=== PATIENT | female | born 1990 | race Caucasian/White ===

== ENCOUNTER 2017-05-18 19:38 | Emergency (ER) | payer OTHER ==
[~2017-05-18] VITALS: Ht 170.2 cm; Wt 64.1 kg
[2017-05-18 20:20] VITALS: BP 115/83
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
[2017-05-18 21:29] LABS: BASOPHILS # (AUTO) 0.2 K/uL (0.00-0.22); BASOPHILS % (AUTO) 2.2 % (0.0-2.0); EOSINOPHILS # (AUTO) 0.2 K/uL (0-0.4); EOSINOPHILS % (AUTO) 1.5 % (0.0-4.0); HEMATOCRIT 42.4 % (36-48); HEMOGLOBIN 14.2 g/dL (12.0-16.0); LYMPHOCYTES % (AUTO) 18.3 % (20.5-51.1); MEAN CORPUSCULAR HEMOGLOBIN 30 pg (27-31); MEAN CORPUSCULAR HGB CONC 33 g/dL (33-37); MEAN CORPUSCULAR VOLUME 90 fL (80-94); MONOCYTES # (AUTO) 0.6 K/uL (0.8-1.0); MONOCYTES % (AUTO) 5.8 % (1.7-9.3); NEUTROPHILS # (AUTO) 7.8 K/uL (1.8-7.7); NEUTROPHILS % (AUTO) 72.2 % (42.2-75.2); PLATELET COUNT (AUTO) 326 K/uL (140-450); RED BLOOD CELL COUNT(AUTO) 4.72 MIL/uL (4.20-5.40); RED CELL DISTRIBUTION WIDTH 13.2 % (11.6-13.7); WHITE BLOOD COUNT (AUTO) 10.8 K/uL (4.8-10.8)
[2017-05-18 21:36] LABS: APPEARANCE,URINE CLEAR (CLEAR); BILIRUBIN,URINE NEGATIVE (NEGATIVE); BLOOD, URINE 2+ (NEGATIVE); COLOR,URINE YELLOW (YELLOW); LEUKOCYTE ESTERASE ,URINE TRACE (NEGATIVE); NITRITE, URINE NEGATIVE (NEGATIVE); PROTEIN,URINE NEGATIVE (NEGATIVE); UGLUCOSE NEGATIVE (NEGATIVE); UROBILINOGEN,URINE 0.2 EU/dL (0.2 - 1)
[2017-05-18 21:45] LABS: ANION GAP 11.3 (8-16); CALCIUM 8.8 mg/dL (8.5-10.1); CARBON DIOXIDE 29.9 mmol/L (21-32); CREATININE 0.9 mg/dL (0.6-1.3); POTASSIUM 4.2 mmol/L (3.5-5.1)
[2017-05-18 21:53] LABS: BACTERIA,URINE 1+ /HPF (None Seen); MUCUS,URINE 1+ /LPF (None Seen); WBC,URINE 0-3 /HPF (0-5)
--- NOTE | 2017-05-18 21:58 | NUR ---
AMBULATED TO ER BED 5
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
--- NOTE | 2017-05-18 22:36 | NUR ---
MORRIS ALVARADO AT BEDSIDE TO INTERVIEW PT
--- NOTE | 2017-05-18 23:34 | NUR ---
Patient discharged with v/s stable. Written and verbal after care instructions given and explained. Patient verbalized understanding. Ambulatory with steady gait. All questions addressed prior to discharge. Advised to follow up with PMD.
[2017-05-18 23:35] VITALS: BP 117/84
== END 2017-05-18 23:35 | disposition home or self-care (01) ==
LOC: MED 19:38
DX: S10.81XA Abrasion of other specified part of neck, initial encounter (principal); R10.84 Generalized abdominal pain; R03.0 Elevated blood-pressure reading, without diagnosis of hypertension; Y04.0XXA Assault by unarmed brawl or fight, initial encounter; Y93.89 Activity, other specified; Y92.89 Other specified places as the place of occurrence of the external cause; Y99.8 Other external cause status
CPT/HCPCS: 36415; 76801; 80048; 81001; 81025; 84702; 85025; 86900; 86901; 99285

== ENCOUNTER 2017-07-08 09:44 | Emergency (ER) | payer OTHER ==
[~2017-07-08] VITALS: Ht 172.7 cm; Wt 61.9 kg
[2017-07-08 10:12] VITALS: BP 92/53
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
--- NOTE | 2017-07-08 10:38 | NUR ---
Patient being evaluated by DR ZULUAGA at bedside.
[2017-07-08] MEDS ORDERED: NACL 0.9% 1,000 ML IV ONE (10:45)
--- NOTE | 2017-07-08 11:27 | NUR ---
Patient appears to be resting comfortably in bed. Vital Signs within normal limits. Respirations even and unlabored.WILL CONTINUE TO MONITOR.
[2017-07-08 11:31] LABS: BILIRUBIN,URINE 1+ (NEGATIVE); COLOR,URINE ORANGE (YELLOW); LEUKOCYTE ESTERASE ,URINE NEGATIVE (NEGATIVE); NITRITE, URINE NEGATIVE (NEGATIVE); UGLUCOSE NEGATIVE (NEGATIVE)
[2017-07-08 11:43] LABS: ANION GAP 10.4 (8-16); CARBON DIOXIDE 26.9 mmol/L (21-32); CREATININE 0.7 mg/dL (0.6-1.3); POTASSIUM 4.3 mmol/L (3.5-5.1)
--- NOTE | 2017-07-08 11:45 | NUR ---
SISTER AT BEDSIDE.Patient appears to be resting comfortably in bed. Vital Signs within normal limits. Respirations even and unlabored.WILL CONTINUE & MONITOR.
[2017-07-08 11:47] LABS: APPEARANCE,URINE HAZY (CLEAR)
[2017-07-08 11:48] LABS: BLOOD, URINE 1+ (NEGATIVE); RBC,URINE 0-5 (RARE) /HPF (0-5); WBC,URINE 0-5 (RARE) /HPF (0-5)
[2017-07-08 11:52] LABS: BASOPHILS # (AUTO) 0.3 K/uL (0.00-0.22); BASOPHILS % (AUTO) 3.9 % (0.0-2.0); EOSINOPHILS # (AUTO) 0.2 K/uL (0-0.4); EOSINOPHILS % (AUTO) 1.7 % (0.0-4.0); HEMATOCRIT 40.2 % (36-48); HEMOGLOBIN 13.4 g/dL (12.0-16.0); LYMPHOCYTES # (AUTO) 1.1 K/uL (2.5-16.5); LYMPHOCYTES % (AUTO) 12.8 % (20.5-51.1); MEAN CORPUSCULAR HEMOGLOBIN 30 pg (27-31); MEAN CORPUSCULAR HGB CONC 33 g/dL (33-37); MEAN CORPUSCULAR VOLUME 90 fL (80-94); MONOCYTES # (AUTO) 0.3 K/uL (0.8-1.0); MONOCYTES % (AUTO) 3.2 % (1.7-9.3); NEUTROPHILS # (AUTO) 6.9 K/uL (1.8-7.7); NEUTROPHILS % (AUTO) 78.4 % (42.2-75.2); PLATELET COUNT (AUTO) 246 K/uL (140-450); RED BLOOD CELL COUNT(AUTO) 4.48 MIL/uL (4.20-5.40); RED CELL DISTRIBUTION WIDTH 12.5 % (11.6-13.7); WHITE BLOOD COUNT (AUTO) 8.8 K/uL (4.8-10.8)
[2017-07-08 11:58] LABS: ALBUMIN 3.4 g/dL (3.4-5.0); THYROID STIMULATING HORMONE 1.01 uIU/mL (0.34-3.74); TOTAL BILIRUBIN 0.7 mg/dL (0.0-1.0)
[2017-07-08 12:49] VITALS: BP 112/71
== END 2017-07-08 12:49 | disposition home or self-care (01) ==
LOC: MED 09:44
DX: R55 Syncope and collapse (principal); R42 Dizziness and giddiness
CPT/HCPCS: 36415; 80053; 81001; 81025; 84443; 84484; 85025; 93005; 96360; 99285; J7030

== ENCOUNTER 2017-09-20 18:09 | Emergency (ER) | payer OTHER ==
[~2017-09-20] VITALS: Ht 170.2 cm; Wt 61.2 kg
[2017-09-20 19:23] VITALS: BP 104/63
--- NOTE | 2017-09-20 19:31 | NUR ---
TO ER BED 4
--- NOTE | 2017-09-20 19:35 | NUR ---
27 Y/O F W/C/O PELVIC PAIN AND ABD VAGINAL BLEEDING X 1 MTN. PT DENIES ANY MED HX, AND STATES HAS AN IUD ON PLACE. ER LUPE MADE AWARE.
--- NOTE | 2017-09-20 20:00 | NUR ---
TERESITA HARMON AT BEDSIDE EVALUATING PT.
--- NOTE | 2017-09-20 20:40 | NUR ---
Pelvic exam performed by DR GONZALEZ with TAMARA SALMON at bedside for entire examination. Patient tolerated procedure WELL. Patient assisted to position of comfort after examination.
[2017-09-20] MEDS ORDERED: metroNIDAZOLE 250 MG TAB PO ONE (20:45)
[2017-09-20] MEDS ORDERED: cefTRIAXone 1,000 MG VIAL ONE (20:57)
[2017-09-20 22:03] VITALS: BP 107/68
--- NOTE | 2017-09-20 22:03 | NUR ---
Patient discharged by dr ferreira with v/s stable. Written and verbal after care instructions given and explained by er md. Patient alert, oriented and verbalized understanding of instructions. Ambulatory with steady gait. All questions addressed prior to discharge. ID band removed. Patient advised to follow up with PMD or return to er if condition worsens. Rx of doxycycline given. Patient educated on indication of medication including possible reaction and side effects. Opportunity to ask questions provided and answered.
[2017-09-23 06:19] LABS: CHLAMYDIA TRACHOMATIS AMP DNA Positive (Negative)
== END 2017-09-20 22:03 | disposition home or self-care (01) ==
LOC: MED 18:09
DX: N76.0 Acute vaginitis (principal); Z71.6 Tobacco abuse counseling; Z90.49 Acquired absence of other specified parts of digestive tract
CPT/HCPCS: 36415; 81002; 81025; 87070; 87491; 96365; 99284; J0696; J7060

== ENCOUNTER 2018-01-31 12:31 | Emergency (ER) | payer OTHER ==
[~2018-01-31] VITALS: Ht 170.2 cm; Wt 63.0 kg
[2018-01-31 12:37] VITALS: BP 122/70
--- NOTE | 2018-01-31 12:44 | NUR ---
PT AMBULATED TO BED 1
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
--- NOTE | 2018-01-31 12:45 | NUR ---
Note undone in EDM - 01/31/18 at 1423 by [email or web address] PATIENT PRESENTS TO ED WITH NUSEA AND ABDOMINIAL PAIN . PT. DENIES /DV AND; SKIN IS PINK/WARM/DRY; AAOX4 WITH EVEN AND STEADY GAIT; LUNGS CLEAR BL; HR EVEN AND REGULAR; PT C/O MAY HAVE HAD INTERMITEN FEVER DENIES, CP, SOB, OR COUGH AT THIS TIME; PATIENT STATES PAIN OF 7/10 AT THIS TIME; VSS; PATIENT POSITIONED FOR COMFORT; HOB ELEVATED; BEDRAILS UP X2; BED DOWN. ER MADE AWARE OF PT STATUS.
--- NOTE | 2018-01-31 12:45 | NUR ---
PATIENT PRESENTS TO ED WITH NUSEA AND ABDOMINIAL PAIN . PT. DENIES /DV AND; SKIN IS PINK/WARM/DRY; AAOX4 WITH EVEN AND STEADY GAIT; LUNGS CLEAR BL; HR EVEN AND REGULAR; PT C/O MAY HAVE HAD INTERMITEN FEVER DENIES, CP, SOB, OR COUGH AT THIS TIME; PATIENT STATES PAIN OF 7/10 AT THIS TIME; VSS; PATIENT POSITIONED FOR COMFORT; HOB ELEVATED; BEDRAILS UP X2; BED DOWN. ER MD MADE AWARE OF PT STATUS.
[2018-01-31] MEDS ORDERED: KETOROLAC 60 MG/2 ML VIAL IM ONE (12:55)
--- NOTE | 2018-01-31 15:20 | NUR ---
Patient discharged with v/s stable. Written and verbal after care instructions given and explained. Patient alert, oriented and verbalized understanding of instructions. Ambulatory with steady gait. All questions addressed prior to discharge. ID band removed. Patient advised to follow up with PMD. Rx of MOtrin, prilosec, and [place] given. Patient educated on indication of medication including possible reaction and side effects. Opportunity to ask questions provided and answered.
[2018-01-31 15:21] VITALS: BP 119/72
== END 2018-01-31 15:21 | disposition home or self-care (01) ==
LOC: MED 12:31
DX: R10.30 Lower abdominal pain, unspecified (principal); R50.9 Fever, unspecified; R11.0 Nausea; F17.200 Nicotine dependence, unspecified, uncomplicated; Z90.49 Acquired absence of other specified parts of digestive tract
CPT/HCPCS: 96372; 99283; J1885; 81002; 81025

== ENCOUNTER 2019-12-29 17:59 | Emergency (ER) | payer MEDICAID, OTHER ==
[~2019-12-29] VITALS: Ht 170.2 cm; Wt 74.8 kg
[2019-12-29 18:12] VITALS: BP 122/83
--- NOTE | 2019-12-29 19:13 | NUR ---
AMB TO BED 12
--- NOTE | 2019-12-29 19:40 | NUR ---
DR. GUTIÉRREZ AT BEDSIDE.
[2019-12-29] MEDS ORDERED: NACL 0.9% 1,000 ML IV ONE (19:55)
[2019-12-29] MEDS ORDERED: fentaNYL 0.05 MG/ML VIAL IVP ONE (19:55)
[2019-12-29] MEDS ORDERED: ONDANSETRON 4 MG/2 ML VIAL IVP ONE (19:55)
--- NOTE | 2019-12-29 19:55 | NUR ---
29 YO F BIB SELF C/O 08/16 CONSTANT "PULLING"/SHARP EPIGASTRIC PAIN X 4 DAYS. PT STATES IT RADIATES INTO RIGHT SIDE MIDDLE BACK. DENIES NVD. LAST BM THIS MORNING, PT STATES IT WAS NORMAL. DENIES CONSTIPATION. ABD IS FLAT, SOFT, PLIABLE, NON TENDER. MEDICATED AT HOME WITH 800 MG MOTRIN AND TYLENOL WITH MILD, TEMPORARY RELIEF. PMH-- CHOLECYSTECTOMY, 5+ YEARS AGO
--- NOTE | 2019-12-29 20:18 | NUR ---
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
[2019-12-29 20:21] LABS: BASOPHILS # (AUTO) 0.2 K/uL (0.00-0.22); BASOPHILS % (AUTO) 1.5 % (0.0-2.0); EOSINOPHILS # (AUTO) 0.3 K/uL (0-0.4); EOSINOPHILS % (AUTO) 2.2 % (0.0-4.0); HEMATOCRIT 42.5 % (36-48); HEMOGLOBIN 14.4 g/dL (12.0-16.0); LYMPHOCYTES # (AUTO) 3.1 K/uL (2.5-16.5); MEAN CORPUSCULAR HEMOGLOBIN 30 pg (27-31); MEAN CORPUSCULAR HGB CONC 34 g/dL (33-37); MEAN CORPUSCULAR VOLUME 88.5 fL (80-94); MONOCYTES # (AUTO) 0.7 K/uL (0.8-1.0); MONOCYTES % (AUTO) 6.5 % (1.7-9.3); NEUTROPHILS # (AUTO) 7.2 K/uL (1.8-7.7); NEUTROPHILS % (AUTO) 62.8 % (42.2-75.2); PLATELET COUNT (AUTO) 369 K/uL (140-450); RED CELL DISTRIBUTION WIDTH 12.9 % (11.6-13.7); WHITE BLOOD COUNT (AUTO) 11.5 K/uL (4.8-10.8)
[2019-12-29 20:27] LABS: APPEARANCE,URINE CLEAR (CLEAR); BILIRUBIN,URINE NEGATIVE (NEGATIVE); BLOOD, URINE 3+ (NEGATIVE); COLOR,URINE YELLOW (YELLOW); LEUKOCYTE ESTERASE ,URINE NEGATIVE (NEGATIVE); NITRITE, URINE NEGATIVE (NEGATIVE); PH,URINE 8.5 (5.0-9.0); UGLUCOSE NEGATIVE (NEGATIVE)
[2019-12-29 20:32] LABS: ALBUMIN 3.7 g/dL (3.4-5.0); ANION GAP 10.8 (8-16); CARBON DIOXIDE 28.1 mmol/L (21-32); CREATININE 0.7 mg/dL (0.6-1.3); POTASSIUM 3.9 mmol/L (3.5-5.1); TOTAL BILIRUBIN 0.2 mg/dL (0.0-1.0)
[2019-12-29 20:32] LABS: RBC,URINE 11-20 (MOD) /HPF (0-5); WBC,URINE 0-5 /HPF (0-5)
[2019-12-29] MEDS ORDERED: KETOROLAC 30 MG/ML VIAL IVP ONE (21:10)
--- NOTE | 2019-12-29 21:50 | NUR ---
PT TAKEN TO CT VIA WC.
[2019-12-29 22:45] VITALS: BP 132/79
--- NOTE | 2019-12-29 22:45 | NUR ---
Patient discharged with v/s stable. Written and verbal after care instructions given and explained. Pt states medications effective in providing pain relief. Denies pain at this time. Patient alert, oriented and verbalized understanding of instructions. Ambulatory with steady gait. All questions addressed prior to discharge. ID band removed. Patient advised to follow up with PMD. Rx Bentyl and Pepcid given. Patient educated on indication of medication including possible reaction and side effects. Opportunity to ask questions provided and answered.
== END 2019-12-29 22:45 | disposition home or self-care (01) ==
LOC: MED 17:59
DX: K29.70 Gastritis, unspecified, without bleeding (principal)
CPT/HCPCS: 36415; 74176; 80053; 81001; 81025; 82150; 83690; 84703; 85025; 96361; 96374; 96375; 99284; J1885; J2405; J3010; J7030

== ENCOUNTER → 2020-02-18 14:23 | Emergency (ER) | payer MEDICAID ==
--- NOTE | 2020-02-18 14:23 | NUR ---
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 PANDYA. NO FURTHER CARE PROVIDED FOR PATIENT.
== END | disposition left against medical advice (07) ==
LOC: MED 14:23
DX: R05 Cough (principal); Z53.21 Procedure and treatment not carried out due to patient leaving prior to being seen by health care provider

== ENCOUNTER 2020-02-18 15:09 | Emergency (ER) | payer MEDICAID, SELFPAY ==
[~2020-02-18] VITALS: Ht 170.2 cm; Wt 74.8 kg
[2020-02-18 15:11] VITALS: BP 126/88
[2020-02-18] MEDS ORDERED: LIDOCAINE VISCOUS 2% 20 ML UDC PO ONE (15:30)
[2020-02-18] MEDS ORDERED: ACETAMINOPHEN 325 MG TAB PO ONE (15:30)
[2020-02-18] MEDS ORDERED: FAMOTIDINE 20 MG TAB PO ONE (15:30)
[2020-02-18] MEDS ORDERED: ALUMINUM HYD/MAG/SIMETHICONE 30 ML UDC PO ONE (15:30)
[2020-02-18 16:01] LABS: BASOPHILS # (AUTO) 0.1 K/uL (0.00-0.22); BASOPHILS % (AUTO) 0.7 % (0.0-2.0); EOSINOPHILS % (AUTO) 0.4 % (0.0-4.0); HEMATOCRIT 44.2 % (36-48); HEMOGLOBIN 14.8 g/dL (12.0-16.0); LYMPHOCYTES # (AUTO) 1.7 K/uL (2.5-16.5); LYMPHOCYTES % (AUTO) 16.4 % (20.5-51.1); MEAN CORPUSCULAR HEMOGLOBIN 31 pg (27-31); MEAN CORPUSCULAR HGB CONC 34 g/dL (33-37); MEAN CORPUSCULAR VOLUME 91.3 fL (80-94); MONOCYTES # (AUTO) 0.5 K/uL (0.8-1.0); MONOCYTES % (AUTO) 4.7 % (1.7-9.3); NEUTROPHILS # (AUTO) 8.2 K/uL (1.8-7.7); NEUTROPHILS % (AUTO) 77.8 % (42.2-75.2); PLATELET COUNT (AUTO) 328 K/uL (140-450); RED BLOOD CELL COUNT(AUTO) 4.85 MIL/uL (4.20-5.40); RED CELL DISTRIBUTION WIDTH 13.7 % (11.6-13.7); WHITE BLOOD COUNT (AUTO) 10.6 K/uL (4.8-10.8)
[2020-02-18 16:22] LABS: ALBUMIN 3.8 g/dL (3.4-5.0); ANION GAP 13.8 (8-16); CARBON DIOXIDE 24.2 mmol/L (21-32); CREATININE 0.8 mg/dL (0.6-1.3); TOTAL BILIRUBIN 0.5 mg/dL (0.0-1.0)
[2020-02-18] MEDS ORDERED: HYDROcodone/APAP 5/325 MG 1 TAB TAB PO ONE (16:35)
[2020-02-18 17:05] VITALS: BP 114/68
== END 2020-02-18 17:05 | disposition home or self-care (01) ==
LOC: EEVIPCON 15:09 → MED 15:09
DX: K29.70 Gastritis, unspecified, without bleeding (principal); F17.200 Nicotine dependence, unspecified, uncomplicated; Z90.49 Acquired absence of other specified parts of digestive tract; Z71.6 Tobacco abuse counseling
CPT/HCPCS: 36415; 80053; 81002; 81025; 83690; 85025; 99284

== ENCOUNTER 2020-03-08 21:35 | Emergency (ER) | payer SELFPAY ==
[~2020-03-08] VITALS: Ht 170.2 cm; Wt 75.3 kg
[2020-03-08 21:48] VITALS: BP 106/81
[2020-03-08] MEDS ORDERED: DICYCLOMINE HCL LIQUID 20 MG, ALUMINUM HYD/MAG/SIMETHICONE 30 ML, LIDOCAINE VISCOUS 2% ... PO ONE ×3 (22:10)
[2020-03-08] MEDS ORDERED: KETOROLAC 30 MG/ML VIAL IM ONE (22:10)
[2020-03-08] MEDS ORDERED: ALUMINUM HYD/MAG/SIMETHICONE 30 ML UDC ONE (22:14)
[2020-03-08] MEDS ORDERED: LIDOCAINE VISCOUS 2% 20 ML UDC ONE (22:14)
[2020-03-08] MEDS ORDERED: DICYCLOMINE HCL LIQUID 10 MG/5 ML UDC ONE (22:15)
[2020-03-08 22:40] LABS: BASOPHILS # (AUTO) 0.1 K/uL (0.00-0.22); BASOPHILS % (AUTO) 0.8 % (0.0-2.0); EOSINOPHILS # (AUTO) 0.2 K/uL (0-0.4); EOSINOPHILS % (AUTO) 1.8 % (0.0-4.0); HEMATOCRIT 41.9 % (36-48); HEMOGLOBIN 14.1 g/dL (12.0-16.0); LYMPHOCYTES # (AUTO) 3.4 K/uL (2.5-16.5); LYMPHOCYTES % (AUTO) 28.5 % (20.5-51.1); MEAN CORPUSCULAR HEMOGLOBIN 31 pg (27-31); MEAN CORPUSCULAR HGB CONC 34 g/dL (33-37); MEAN CORPUSCULAR VOLUME 91.1 fL (80-94); MONOCYTES # (AUTO) 0.8 K/uL (0.8-1.0); MONOCYTES % (AUTO) 6.4 % (1.7-9.3); NEUTROPHILS # (AUTO) 7.4 K/uL (1.8-7.7); NEUTROPHILS % (AUTO) 62.5 % (42.2-75.2); PLATELET COUNT (AUTO) 367 K/uL (140-450); RED CELL DISTRIBUTION WIDTH 13.6 % (11.6-13.7); WHITE BLOOD COUNT (AUTO) 11.9 K/uL (4.8-10.8)
[2020-03-08 22:49] LABS: APPEARANCE,URINE CLEAR (CLEAR); BILIRUBIN,URINE NEGATIVE (NEGATIVE); BLOOD, URINE 3+ (NEGATIVE); COLOR,URINE YELLOW (YELLOW); LEUKOCYTE ESTERASE ,URINE NEGATIVE (NEGATIVE); NITRITE, URINE NEGATIVE (NEGATIVE); UGLUCOSE NEGATIVE (NEGATIVE)
[2020-03-08 22:57] LABS: BARBITURATE, URINE NEGATIVE ng/ml (NEG <=200); BENZODIAZEPINE, URINE NEGATIVE ng/mL (NEG <=200); CANNABINOID, URINE POSITIVE ng/mL (NEG <=50); COCAINE, URINE NEGATIVE ng/mL (NEG <=300); OPIATE, URINE NEGATIVE ng/mL (NEG <=2000); PHENCYCLIDINE SCREEN,URINE NEGATIVE ng/mL (NEG <=25)
[2020-03-08 23:02] LABS: ALBUMIN 3.7 g/dL (3.4-5.0); ANION GAP 11.4 (8-16); CREATININE 0.9 mg/dL (0.6-1.3); POTASSIUM 3.4 mmol/L (3.5-5.1); TOTAL BILIRUBIN 0.4 mg/dL (0.0-1.0)
[2020-03-08 23:02] LABS: WBC,URINE 0-5 /HPF (0-5)
[2020-03-08] MEDS ORDERED: fentaNYL 0.05 MG/ML VIAL NS ONE (23:20)
[2020-03-09 01:51] VITALS: BP 118/79
== END 2020-03-09 01:51 | disposition home or self-care (01) ==
LOC: MED 21:35
DX: R10.9 Unspecified abdominal pain (principal); Z90.49 Acquired absence of other specified parts of digestive tract
CPT/HCPCS: 36415; 74176; 80053; 80305; 81001; 81025; 83690; 85025; 99284; J1885; J3010

== ENCOUNTER 2020-05-14 16:23 | Emergency (ER) | payer SELFPAY ==
[~2020-05-14] VITALS: Ht 170.2 cm; Wt 77.1 kg
[2020-05-14 16:33] VITALS: BP 113/74
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
[2020-05-14] MEDS ORDERED: MORPHINE SULFATE 4 MG/ML SYR IVP STA (16:37)
[2020-05-14] MEDS ORDERED: ONDANSETRON 4 MG/2 ML VIAL IVP STA (16:37)
--- NOTE | 2020-05-14 17:12 | NUR ---
PT SIGNED CT WITH CONTRAST ORDER
[2020-05-14 17:23] LABS: BASOPHILS # (AUTO) 0.2 K/uL (0.00-0.22); BASOPHILS % (AUTO) 1.7 % (0.0-2.0); EOSINOPHILS # (AUTO) 0.2 K/uL (0-0.4); EOSINOPHILS % (AUTO) 1.5 % (0.0-4.0); HEMATOCRIT 43.2 % (36-48); HEMOGLOBIN 14.6 g/dL (12.0-16.0); LYMPHOCYTES # (AUTO) 2.8 K/uL (2.5-16.5); LYMPHOCYTES % (AUTO) 27.2 % (20.5-51.1); MEAN CORPUSCULAR HEMOGLOBIN 31 pg (27-31); MEAN CORPUSCULAR HGB CONC 34 g/dL (33-37); MONOCYTES # (AUTO) 0.7 K/uL (0.8-1.0); MONOCYTES % (AUTO) 7.1 % (1.7-9.3); NEUTROPHILS # (AUTO) 6.5 K/uL (1.8-7.7); NEUTROPHILS % (AUTO) 62.5 % (42.2-75.2); PLATELET COUNT (AUTO) 376 K/uL (140-450); RED BLOOD CELL COUNT(AUTO) 4.75 MIL/uL (4.20-5.40); RED CELL DISTRIBUTION WIDTH 13.2 % (11.6-13.7); WHITE BLOOD COUNT (AUTO) 10.3 K/uL (4.8-10.8)
[2020-05-14 17:40] LABS: ALBUMIN 3.8 g/dL (3.4-5.0); ANION GAP 15.4 (8-16); CARBON DIOXIDE 24.8 mmol/L (21-32); CREATININE 0.7 mg/dL (0.6-1.3); POTASSIUM 5.2 mmol/L (3.5-5.1); TOTAL BILIRUBIN 0.3 mg/dL (0.0-1.0)
[2020-05-14 17:44] LABS: BILIRUBIN,URINE NEGATIVE (NEGATIVE); BLOOD, URINE 2+ (NEGATIVE); COLOR,URINE YELLOW (YELLOW); LEUKOCYTE ESTERASE ,URINE TRACE (NEGATIVE); NITRITE, URINE NEGATIVE (NEGATIVE); UGLUCOSE NEGATIVE (NEGATIVE)
[2020-05-14 17:45] LABS: APPEARANCE,URINE HAZY (CLEAR)
--- NOTE | 2020-05-14 17:48 | NUR ---
PT ALERT AND AWAKE, BREATHING EVEN AND UNLABORED. PT STATES SHE IS STILL IN PAIN. ERMD MADE AWARE
[2020-05-14] MEDS ORDERED: KETOROLAC 30 MG/ML VIAL IVP ONE (17:50)
--- NOTE | 2020-05-14 17:58 | NUR ---
PT BEING TAKEN TO CT
[2020-05-14 18:13] LABS: RBC,URINE NONE SEEN /HPF (0-5); WBC,URINE 0-5 /HPF (0-5)
--- NOTE | 2020-05-14 18:50 | NUR ---
PT RESTING WITH EYES CLOSED, BREATHING EVEN AND UNLABORED
--- NOTE | 2020-05-14 19:15 | NUR ---
RECIEVED REPORT FROM JEAN CARLOS HACKETT. PT IS DISCHARGED BUT WE ARE CONTACTING TO [employer] HEMMER PT POST DOSE OF MORPHINE. CONTACTED ON PATIENT DATA LIST, WENT STRAIGHT TO [employer]. PT MADE AWARE TO KEEP CALLING FAMILY FOR A RIDE.
--- NOTE | 2020-05-14 19:30 | NUR ---
PT WAS ABLE TO GET AHOLD OF HER SISTER TO GET A RIDE. PT WILL WAIT IN LOBBY UNTIL MEDICAL SCIENTIFIC LIAISON.
[2020-05-14 19:40] VITALS: BP 121/74
== END 2020-05-14 19:40 | disposition home or self-care (01) ==
LOC: MED 16:23
DX: R10.31 Right lower quadrant pain (principal)
CPT/HCPCS: 36415; 74177; 80053; 81001; 81025; 85025; 96374; 96375; 99285; J1885; J2270; J2405; Q9967

== ENCOUNTER 2020-05-23 20:32 | Emergency (ER) | payer SELFPAY ==
--- NOTE | 2020-05-23 21:00 | NUR ---
CALLED PT BACK. NO RESPONSE.
--- NOTE | 2020-05-23 21:05 | NUR ---
CALLED FOR TRIAGE, NO RESPONSE.
--- NOTE | 2020-05-23 21:10 | NUR ---
CALLED FOR TRIAGE, NO RESPONSE.
--- NOTE | 2020-05-23 21:15 | NUR ---
PT LEFT FACILITY BEFORE TRIAGE.
== END 2020-05-23 21:00 | disposition left against medical advice (07) ==
LOC: MED 20:32
DX: R10.9 Unspecified abdominal pain (principal); Z53.21 Procedure and treatment not carried out due to patient leaving prior to being seen by health care provider

== ENCOUNTER 2020-08-19 19:37 | Emergency (ER) | payer SELFPAY ==
[~2020-08-19] VITALS: Ht 170.2 cm; Wt 77.1 kg
[2020-08-19 19:43] VITALS: BP 112/72
--- NOTE | 2020-08-19 19:43 | NUR ---
PT TRIAGED IN TENT , MILES SIGNS STABLE. NO ACUTE DISTRESS NOTED. ERMD MADE AWARE OF PT STATUS.
--- NOTE | 2020-08-19 20:10 | NUR ---
PT AMBULATED TO ER BED # 8 W/ STEADY GAIT.
--- NOTE | 2020-08-19 20:12 | NUR ---
30 Y/O F CAME IN TO ER WITH C/O COUGH, BODYACHES, HEADACHE, AND FEVER LIKE SYMPTOMS FOR PAST 2 WEEKS. REPORTS LIVES WITH SISTER WHO HAS BEEN TESTING POSITIVE FOR COVID 19. REPORTS HAVING A FEVER 2 WEEKS AGO WITH INTERMITTENT CHILLS/SWEATS. REPORTS VOMITED ONCE AND HAS LOSS OF TASTE FOR 2 WEEKS. NO PAST MEDICAL HX, NKA. PT ON RA WITH INTERMITTENT COUGH. VSS, SP02 100%, LUNG SOUNDS CLEAR IN UPPER LOBES, DIMINSHED AT BASES. DENIES BODYACHES AT THIS TIME, MODERATE HEADACHE. SAFETY MEASURES IN PLACE.
--- NOTE | 2020-08-19 20:33 | NUR ---
X-Ray at bedside.
--- NOTE | 2020-08-19 20:48 | NUR ---
Dr. Mcintyre examining patient.
--- NOTE | 2020-08-19 21:30 | NUR ---
NOVEL COVID SWAB COLLECTED AND WALKED TO LAB.
[2020-08-19 21:39] VITALS: BP 112/72
--- NOTE | 2020-08-19 21:39 | NUR ---
Patient discharged with v/s stable. Written and verbal after care instructions given and explained. Patient alert, oriented and verbalized understanding of instructions. Ambulatory with steady gait. All questions addressed prior to discharge. ID band removed. Patient advised to follow up with PMD. Rx of PROMETHAZINE HYDROCHLORIDE given. Patient educated on indication of medication including possible reaction and side effects. Opportunity to ask questions provided and answered.
== END 2020-08-19 21:39 | disposition home or self-care (01) ==
LOC: MED 19:37
DX: R05 Cough (principal); F17.200 Nicotine dependence, unspecified, uncomplicated; Z20.828 Contact with and (suspected) exposure to other viral communicable diseases
CPT/HCPCS: 71045; 99284; Q0092; U0003

== ENCOUNTER 2021-10-21 11:26 | Outpatient (CLI) | payer MEDICAID | END 2021-10-21 21:44 | disposition home or self-care (01) | LOC: MUS 11:26 | PROVIDERS: ATTEND Obstetrics & Gynecology | DX: O00.90 Unspecified ectopic pregnancy without intrauterine pregnancy (principal); Z3A.01 Less than 8 weeks gestation of pregnancy | CPT/HCPCS: 76817; Q0092 ==